=== PATIENT | male | born 1950 | race Caucasian/White ===

== ENCOUNTER 2019-02-24 04:40 | Emergency (ER) | payer MEDICARE, BC, SELFPAY ==
[2019-02-24 04:44] VITALS: BP 123/88; PULSE 87; RESP 17; TEMP 36.8; O2SAT 95; BMI 33.7
--- NOTE | 2019-02-24 05:03 | EKG12_ITS ---
Test Reason : SOB Blood Pressure : / mmHG Vent. Rate : 080 BPM Atrial Rate : 080 BPM P-R Int : 150 ms QRS Dur : 158 ms QT Int : 420 ms P-R-T Axes : 069 246 007 degrees QTc Int : 484 ms Normal sinus rhythm Right bundle branch block Inferior infarct , age undetermined Abnormal ECG Confirmed by MERA FELDER, NIDHI ([id number]), story editor MINH DORMAN ([id number]) on 02/26/2019 11:01:20 AM Referred By: LYNN Confirmed By:NIDHI TESFAYE MD
--- NOTE | 2019-02-24 05:03 | RAD_ITS ---
STUDY: X-RAY CHEST REASON FOR EXAM: Male, 68 years old. Chest pain, history of congestive heart failure. TECHNIQUE: PA and lateral views of the chest. COMPARISON: 01/23/2015. FINDINGS: The lungs are normally expanded with minimal right basilar atelectasis. Remainder of the lung ratliff are clear. There is no demonstrated pleural abnormality. Normal size heart. Normal mediastinum and sakina. Normal visualized pulmonary arteries. Normal visualized aortic arch and descending thoracic aorta. There are diffuse degenerative changes of the visualized thoracic spine. There is degenerative osteoarthritis of the bilateral shoulders. There is no demonstrated abnormality of the visualized soft tissue structures of the upper abdomen. RAD/Chest PA and Lateral IMPRESSION: Minimal right basilar atelectasis, otherwise no acute cardiopulmonary process seen. Electronically Signed: Fatuma Barber MD at 6:07 EDT , Service support ,
[2019-02-24] MEDS: 0.9% Normal Saline 1,000 ML 15 ML IV (05:15)
[2019-02-24 05:40] LABS: Absolute Lymphocyte Count 0.95 X10^3/uL (0.83-4.51); Absolute Neutrophil Count 7.1 X10^3/uL (2.0-7.7); Basophil# 0.07 X10^3/uL; Basophil% 0.8 % (0-1); Eosinophil# 0.14 X10^3/uL; Eosinophils% 1.5 % (0-5); Hematocrit 42.3 % (40-54); Hemoglobin 13.7 g/dL (13.0-16.5); Lymphocyte # 0.95 X10^3/ul (4.0); Lymphocyte % 10.4 % (19-41); Mean Corp Hgb Conc 32.4 g/dL (32-36); Mean Corpuscular Hgb 28.7 pg (27.0-32.0); Mean Corpuscular Volume 88.5 fL (80-94); Monocyte% 8.8 % (0-10); NRBC Flagged by Analyzer 0 % (0-5); Neutrophil # 7.11 X10^3/uL (2.7-7.7); Neutrophil % 78.1 % (47-70); Platelet Count 202 K/mm3 (150-450); RBC Distribution Width SD 42.2 fl (35.1-43.9); Red Blood Count 4.78 M/mm3 (4.6-6.2); White Blood Count 9.1 K/mm3 (4.4-11.0)
--- NOTE | 2019-02-24 05:51 | ED.DCSUM_ITS ---
- ER Visit Summary Date of Service: 02/24/19 Chief Complaint: [Shortness of breath] History of Present Illness: The patient is a 68 M [presents to the emergency department with complaint of shortness of breath that has had for about 4 days. Patient states that he had a tooth pulled 4 days ago and ever since that time is not felt well. Patient states that he is having a hard time breathing when lying flat. Patient states that he has had cough when trying to clear his throat. Had nausea but no vomiting. He denies any abdominal pain. Denies fever. Denies chest pain. Patient currently on amoxicillin for the dental extraction. Patient has history of diabetes, hypertension, and high cholesterol. Patient has history of A. fib and lymphoma that is in remission. Patient is on Xarelto.] Patient does not have history of coronary artery disease and no history of PE. No history of CHF. Physical Examination: [HEENT-PERRLA, EOMI. Cranial nerves II through XII grossly intact. TMs clear. Mucous membranes moist. No adenopathy. Dentition- patient does have a right lower molar that is been extracted with sutures in place and edema and bruising noted to the gingiva. Cardiovascular-regular rate and rhythm without murmur or ectopy Lungs-clear to auscultation, chest wall stable without crepitus or subcu emphysema Abdomen-normoactive bowel sounds, soft, nontender, no rebound or rigidity, no peritoneal signs. Extremities-intact ?4, normal range of motion, normal pulses, atraumatic] Test Results: [EKG obtained on arrival shows sinus rhythm with a ventricular rate of 80 bpm with right bundle branch block. CBC with differential showed a white count of 9.1, hemoglobin 13.7, hematocrit 42, plates 202.] Chemistries were normal. LFTs unremarkable. Lipase was normal at 1.3. Troponin is less than 0.15. BNP was normal at 39. Chest x-ray showed minimal bibasilar atelectasis otherwise nothing acute. Emergency Department Course and Treatment: [Patient was placed on a cardiac catheterization technologist on arrival] Treatment Plan: [Discharged home with advised to follow-up with primary care physician within next 3 to 5 days.] Disposition: [Discharged home in stable condition.] Impression: [Dyspnea-etiology uncertain] This note was generated with [employer] ([employer]ation software. It may contain incorrect words, spelling, and punctuation that were not noted in review of the chart prior to signing ED Disposition - Plan for ED Patient: Referrals: Hesham Young III, MD [Primary Care Provider] -
[2019-02-24 06:07] LABS: AST(SGOT) 23 U/L (15-37); Alanine Aminotransfer ALT/SGPT 29 U/L (16-61); Albumin, Serum 3.8 g/dL (3.2-5.0); Alkaline Phosphatase 80 U/L (45-117); Anion Gap 7 (5-15); BUN 13 mg/dL (7-18); BUN/Creat Ratio 12.1 RATIO (10-20); Calcium,Total 8.8 mg/dL (8.5-10.1); Chloride 103 mmol/L (98-107); Creatinine, Serum 1.07 mg/dL (0.70-1.30); EST Glomerular Filtration Rate 73 mL/min (>60); Est Glom Filt Rate - Afr Amer 88 mL/min (>60); Estimated Creatinine Clearance 76.78 ml/min; Globulin 3.7 g/dL (2.2-4.2); Glucose 155 mg/dL (74-106); Lipase 123 U/L (73-393); Potassium 4.1 mmol/L (3.5-5.1); Protein, Total 7.5 g/dL (6.4-8.2); Sodium Level 135 mmol/L (136-145)
[2019-02-24 06:09] LABS: Lactic Acid 1.8 mmol/L (0.4-2.0)
[2019-02-24 06:16] LABS: BNP,B-Type NATRIURETIC PEPTIDE 39.2 pg/mL (0-100)
--- NOTE | 2019-02-24 06:37 | ED.DEP ---
ED Disposition - Plan for ED Patient: Instructions: ED Dyspnea Referrals: Hesham Young III, MD [Primary Care Provider] - 3-5 Days
--- NOTE | 2019-02-24 06:39 | NURSING ---
CALLING [facility] FOR TRANSFER
[2019-02-24 06:43] VITALS: BP 139/82; PULSE 84; RESP 16; O2SAT 94
== END 2019-02-24 06:51 | disposition home or self-care (01) ==
LOC: ED 05:11
PROVIDERS: Emergency Provider Emergency Medicine; Family Provider Family Medicine; PCP Family Medicine
DX: R06.00 Dyspnea, unspecified (principal); R05 Cough; E11.9 Type 2 diabetes mellitus without complications; E78.00 Pure hypercholesterolemia, unspecified; I45.10 Unspecified right bundle-branch block; I48.91 Unspecified atrial fibrillation; I50.9 Heart failure, unspecified; Z79.01 Long term (current) use of anticoagulants; Z85.72 Personal history of non-Hodgkin lymphomas; I11.0 Hypertensive heart disease with heart failure
CPT/HCPCS: 71046; 80053; 83605; 83690; 83880; 84484; 85025; 93005; 99285; J7030

== ENCOUNTER 2019-02-28 16:20 | Emergency (ER) | payer MEDICARE, BC, SELFPAY ==
[2019-02-28 16:21] VITALS: BP 128/100; PULSE 84; PULSE 86; RESP 17; RESP 18; TEMP 37.1; O2SAT 95; BMI 35.2
--- NOTE | 2019-02-28 16:55 | CT_ITS ---
STUDY: CTA OF THE BRAIN REASON FOR EXAM: Male, 68 years old. HEADACHE, HX STROKE RADIATION DOSAGE (If Supplied By Facility): CTDIvol = ( 27.40 ) mGy, DLP = ( 1288.98 ) mGycm TECHNIQUE: CT angiography was performed with a multi-detector CT scanner. Data acquisition was obtained from the skull base through the vertex following intravenous administration of IV 100mL [id number]-370 100. MIP images were reconstructed from the axial data set. Post-processing of the angiographic images was performed, with multiplanar reformation and 3D reconstruction. Individualized dose optimization techniques were used for this CT. COMPARISON: Head CT dated February 28, 2015. FINDINGS: Normal bilateral petrous carotid arteries. There is calcified plaque formation of the right cavernous carotid artery, without a cross-sectional luminal stenosis. There is calcified plaque formation of the left cavernous carotid artery, with a mild stenosis (less than 50%). Normal right A1 segments of the anterior cerebral artery. Normal left A1 segments of the anterior cerebral artery. Normal intact anterior communicating artery (ACOM). Normal bilateral A2 segments of the anterior cerebral arteries. Normal right M1 and M2 segments of the middle cerebral arteries, with a normal M1 bifurcation. Normal left M1 and M2 segments of the middle cerebral arteries, with a normal M1 bifurcation. Normal right posterior communicating artery (PCOM). Normal left posterior communicating artery (PCOM). Normal bilateral vertebral arteries. Normal basilar artery with a normal basilar bifurcation. The visualized bilateral superior cerebellar (SCA) arteries are normal. Normal bilateral P1, P2 and visualized P3 segments of the posterior cerebral arteries. There is no demonstrated aneurysm of the poarch of [place]. Mild atrophy and periventricular chronic microvascular ischemic signal is present in the bilateral cerebral hemispheres. No significant or acute intracranial process is demonstrated. No visualized hemorrhage or midline shift. CT/CTA Head W/WO Contrast IMPRESSION: 1. No demonstrated aneurysm or hemodynamically significant stenosis. 2. There is calcified plaque formation of the right cavernous carotid artery, without a cross-sectional luminal stenosis. 3. There is calcified plaque formation of the left cavernous carotid artery, with a mild stenosis (less than 50%). 4. Mild atrophy and periventricular chronic microvascular ischemic signal is present in the bilateral cerebral hemispheres. No significant or acute intracranial process is demonstrated. Electronically Signed: Clyde Carlos MD at 18:19 EDT , Service support ,
--- NOTE | 2019-02-28 17:00 | ED.DCSUM_ITS ---
- ER Visit Summary Date of Service: 02/28/19 Chief Complaint: Headache History of Present Illness: The patient is a 68 M presenting with intermittent headache. He states this started several days ago. He has pain to the right superior scalp. He states it lasts 30 seconds at a time. He denies fever. Den ies nausea or vomiting. Denies numbness or weakness. Denies vision changes. He had a right lower molar extracted last week. This has been healing well. He has had no fever. No other complaints. Physical Examination: Vitals are stable. Patient is afebrile. Alert no acute distress. HEENT exam is unremarkable. right lower gum healing, no fluctuance. No sublingual edema. Tenderness right superior posterior scalp. No rash is seen. Neck is supple. No meningismus Lungs are clear and equal bilaterally. Heart is regular rate and rhythm. Abdomen is soft nontender nondistended. Extremities are unremarkable. Skin is warm and dry. No focal neurologic deficit. Normal strength and sensation Remainder of exam is unremarkable. Emergency Department Course and Treatment: Patient was given Dilaudid, zofran. CTA head shows no demonstrated aneurysm or hemodynamically significant stenosis. There is calcified plaque formation of the right cavernous carotid artery, without a cross-sectional luminal stenosis. There is calcified plaque formation of the left cavernous carotid artery, with a mild stenosis (less than 50%). Mild atrophy and periventricular chronic microvascular ischemic signal is present in the bilateral cerebral hemispheres. No significant or acute intracranial process is demonstrated. Pain is worsened by mild touch of the scalp. There is no rash consistent with shingles at this time, the patient is advised to watch closely for developing rash. He is given [place]. He is advised to follow-up with his primary care physician. Advised return to ED for worsening complaints. Disposition: Discharge home Impression: Right scalp pain This note was generated with [employer] dictation software. It may contain incorrect words, spelling, and punctuation that were not noted in review of the chart prior to signing ED Disposition - Plan for ED Patient: Instructions: HEADACHE, Unspecified Prescriptions: Hydrocodone Bitart/Apap 5-325 [[place] 5MG-325MG] 1 tab PO Q6H PRN PRN 3 Days #10 tab PRN Reason: Pain Prescription Printed Referrals: Hesham Young III, MD [Primary Care Provider] -
[2019-02-28] MEDS: HYDROmorphone 0.5 MG/0.5 ML SYRINGE IV (17:16)
[2019-02-28] MEDS: Ondansetron 4 MG/2 ML Vial IV (17:16)
[2019-02-28 17:56] VITALS: BP 119/82; PULSE 67; RESP 16
[2019-02-28 19:05] VITALS: BP 108/88
== END 2019-02-28 19:05 | disposition home or self-care (01) ==
LOC: ED 17:18
PROVIDERS: Emergency Provider Emergency Medicine; Family Provider Family Medicine; PCP Family Medicine
DX: R51 Headache (principal); I65.23 Occlusion and stenosis of bilateral carotid arteries; I67.82 Cerebral ischemia; Z86.73 Personal history of transient ischemic attack (TIA), and cerebral infarction without residual deficits; E11.9 Type 2 diabetes mellitus without complications; I10 Essential (primary) hypertension; I48.91 Unspecified atrial fibrillation
CPT/HCPCS: 70496; 96374; 96375; 99285; Q9967; A4216; J2405

== ENCOUNTER 2019-09-01 07:08 | Emergency (ER) | payer MEDICARE, BC, SELFPAY ==
[2019-09-01 07:09] VITALS: BP 115/92; BP 127/72; PULSE 138; PULSE 141; RESP 20; TEMP 36.9; O2SAT 98; O2SAT 99; BMI 33.3
--- NOTE | 2019-09-01 07:30 | EKG12_ITS ---
Test Reason : TACHY Blood Pressure : / mmHG Vent. Rate : 140 BPM Atrial Rate : 140 BPM P-R Int : 152 ms QRS Dur : 082 ms QT Int : 280 ms P-R-T Axes : 000 -80 085 degrees QTc Int : 427 ms Probable atrial flutter with junctional abberant conduction Left axis deviation Inferior infarct , age undetermined Abnormal ECG Confirmed by MERA FELDER, NIDHI ([id number]), index editor JOLYNN BROWN ([id number]) on 09/06/2019 3:35:52 PM Referred By: JORDI Confirmed By:NIDHI TESFAYE MD
--- NOTE | 2019-09-01 07:40 | EKG12_ITS ---
Test Reason : TACHY Blood Pressure : / mmHG Vent. Rate : 140 BPM Atrial Rate : 140 BPM P-R Int : 176 ms QRS Dur : 088 ms QT Int : 288 ms P-R-T Axes : 046 -77 104 degrees QTc Int : 439 ms Sinus tachycardia with frequent Premature ventricular complexes Left anterior fascicular block Inferior infarct , age undetermined Abnormal ECG Confirmed by MERA FELDER, NIDHI ([id number]), production editor JOLYNN BROWN ([id number]) on 09/03/2019 11:15:18 AM Referred By: JORDI Confirmed By:NIDHI TESFAYE MD
--- NOTE | 2019-09-01 07:45 | ED.DCSUM_ITS ---
History of Present Illness Chief Complaint: Palpitations Informant: Patient Onset: Days Maximum Severity: Mild Narrative: The patient presents complaining of palpitations and racing heart since possibly Monday but for sure Monday symptoms persisted into today and he presents for evaluation He indicates he has a long history of cardiac dysrhythmia he indicates is [facility] in m, no fever no cough no chest pain just a sense of tachycardia and fatigue bowel bladder habits been normal review of system otherwise negative Tiffany that he has a combination of atrial fibrillation and ventricular tachycardia he has been on a variety of different therapies including one time amiodarone that made him sick so it was stopped he is currently on metoprolol and lisinopril he has been having dysrhythmia in a more sustained fashion Past Medical History - Allergies and Home Meds Allergies/Adverse Reactions: Allergies morphine Allergy (Verified 09/01/19 07:12) HALLUCINATIONS amoxicillin Adverse Reaction (Verified 09/01/19 07:12) Nausea/Vom/Diarrhea Primary Care Physician: Hesham Young III, MD [Primary Care Provider] - Past Medical History: - - History of A. fib reported V. tach no history of ID PE no COVID exposures Surgical History: - - Patient has had ablation ?2, remote discectomy in the low back Smoking Status: Never smoker - Family History Maternal Family History: Reports: Diabetes, - - Mother of lung cancer Paternal Family History: Reports: Diabetes, - - Father of esophageal cancer Sibling Family History: Reports: Hypertension, - - He has a sister who of lung disease and has a heavy smoker Review of Systems General: Denies: Chills, Fever, Sweats Eyes: Denies: Visual changes - bilaterally, Diplopia ENT: Denies: Rhinorrhea, Sore throat Cardiovascular: Reports: Palpitations, Heart racing. Denies: Chest pain Respiratory: Denies: Dyspnea, Cough, Dyspnea on exertion Gastrointestinal: Denies: Abdominal pain, Nausea, Vomiting, Diarrhea, Melena, Hematochezia Genitourinary: Denies: Dysuria, Hematuria, Frequency Musculoskeletal: Denies: Back pain, Extremity Pain Skin: Denies: Rash, Wounds Neurological: Denies: Headache, Weakness, Numbness Physical Exam Vital Signs/Narrative: Vital Signs Temp Pulse Resp BP Pulse Ox 09/01/19 07:09 98.5 F 138 H 20 H 115/92 H 98 General: Well nourished, Well developed, No Acute Distress Head: Normocephalic, Atraumatic Eyes: Perrl, EOMI ENT: Moist mucous membranes, No rhinorrhea Neck: Supple, Nontender Cardiovascular: No murmurs, Irregular, Tachycardia, - - Patient has an irregular heart rate of 140 he have a sinus beats followed by wide-complex beats 6-8 in a row he is remained hemodynamically stable no fever cough chest pain Respiratory: No distress, CTA bilaterally, Chest nontender Abdomen: Soft, Nontender, Nondistended, Normal bowel sounds Back: Nontender, Normal Inspection Extremities: Nontender, No edema Skin: Normal color, No rash Neurological: Alert, Oriented x3, Cranial nerves II-XII grossly intact, Normal Strength, Normal Sensation Psychological: Normal affect, Normal Mood Diagnostic/Tx/Re-eval - Medical Decision Making The patient has had this condition longstanding his vital signs are unremarkable he is been seen by multiple ui ux developer, he indicates he has had a cardiac cath in the past that showed no signs of CAD he indicates his A. fib/V. tach has been difficult to manage she was scheduled for an EP study and that was not done back in March because at the time from what he can recall ultimately the cardiology team felt that it would be necessary I discussed the patient's condition the differential he indicates he basically cannot tolerate this tachycardia as it has not responded to the medications, he would like to be admitted only to [facility] he does not wish to be considered for admission to [facility] or [facility]\ His EKG shows again sinus beats with runs of wide-complex beats some runs of bigeminy no injury patterns appreciated intervals except for the right bundle branch block pattern otherwise unremarkable, Spoke with [facility] transfer line discussed all the above with them they would like a COVID test done on the patient they have accepted him in transfer to their COVID unit for rule out and then after he rules out for COVID he can have additional cardiology evaluation I spoke with Dr. KALA THURMAN and VALERIA forte why cardiology air pollution compliance inspector who indicates at least 1 of the patient's EP study showed sinus tach and no V. tach or A. fib we discussed dysrhythmia management and they agreed with metoprolol with no additional medications at this time Patient screening labs are obtained and are on the chart as is the chest x-ray all records will be transferred to [facility] we are trying to determine based on [facility] policy if the patient can have the COVID test done here before he leaves Final impression cardiac dysrhythmia, A. fib RVR versus V. tach Transfer to [facility] ED Disposition - Plan for ED Patient: Diagnosis: Atrial fibrillation, Ventricular tachycardia Referrals: Hesham Young III, MD [Primary Care Provider] -
--- NOTE | 2019-09-01 07:48 | NURSING ---
DR OVIDIO BACON
[2019-09-01] MEDS: Aspirin 81 MG TAB.CHEW 324 MG PO (07:49)
[2019-09-01] MEDS: Metoprolol Tartrate 5 MG/5 ML Vial IV (07:49)
[2019-09-01 07:50] LABS: Absolute Lymphocyte Count 2.59 X10^3/uL (0.83-4.51); Absolute Neutrophil Count 5.1 X10^3/uL (2.0-7.7); Basophil# 0.08 X10^3/uL; Basophil% 0.9 % (0-1); Eosinophil# 0.18 X10^3/uL; Eosinophils% 2.1 % (0-5); Hemoglobin 15.8 g/dL (13.0-16.5); Lymphocyte # 2.59 X10^3/ul (4.0); Lymphocyte % 29.8 % (19-41); Mean Corp Hgb Conc 32.2 g/dL (32-36); Mean Corpuscular Hgb 27.4 pg (27.0-32.0); Mean Corpuscular Volume 85.1 fL (80-94); Mean Platelet Vol. 10.3 fl (6.2-12.0); Monocyte# 0.73 X10^3/uL; Monocyte% 8.4 % (0-10); NRBC Flagged by Analyzer 0 % (0-5); Neutrophil # 5.06 X10^3/uL (2.7-7.7); Neutrophil % 58.3 % (47-70); Platelet Count 268 K/mm3 (150-450); RBC Distribution Width SD 39.9 fl (35.1-43.9); Red Blood Count 5.76 M/mm3 (4.6-6.2); White Blood Count 8.7 K/mm3 (4.4-11.0)
--- NOTE | 2019-09-01 07:50 | NURSING ---
[id number] CALLED [facility] FOR TRANSFER. TALKED TO DUSTIN
[2019-09-01 07:55] VITALS: BP 132/108; PULSE 139; RESP 18; O2SAT 98
[2019-09-01 07:59] LABS: Anion Gap 7 (5-15); BUN 15 mg/dL (7-18); BUN/Creat Ratio 12.8 RATIO (10-20); Calcium,Total 9.2 mg/dL (8.5-10.1); Chloride 107 mmol/L (98-107); Creatinine, Serum 1.17 mg/dL (0.70-1.30); EST Glomerular Filtration Rate 65 mL/min (>60); Est Glom Filt Rate - Afr Amer 79 mL/min (>60); Glucose 168 mg/dL (74-106); Sodium Level 139 mmol/L (136-145)
--- NOTE | 2019-09-01 08:00 | RAD_ITS ---
STUDY: X-RAY CHEST REASON FOR EXAM: Male, 68 years old. Palpitations TECHNIQUE: Single AP portable view x 2 of the chest. COMPARISON: February 24, 2019 chest x-ray FINDINGS: Lung markings are stable. There is no visualized acute focal consolidation or pleural effusion. There is no demonstrated pleural abnormality. Normal size heart. Normal mediastinum and sakina. Normal visualized pulmonary arteries. Normal visualized aortic arch and descending thoracic aorta. There are diffuse degenerative changes of the visualized thoracic spine. Normal visualized ribs, clavicles, and shoulders. There is no demonstrated abnormality of the visualized soft tissue structures of the upper abdomen. RAD/Chest 1 View (Portable) IMPRESSION: Stable lung markings no evidence of acute focal infiltrate. Electronically Signed: Kathi Brandt MD at 8:32 EDT Tel , Service support ,
--- NOTE | 2019-09-01 08:00 | NURSING ---
FAXED FACESHEET TO [facility] TRANSFER LINE
[2019-09-01 08:09] LABS: BNP,B-Type NATRIURETIC PEPTIDE 365.1 pg/mL (0-100)
--- NOTE | 2019-09-01 08:10 | NURSING ---
[facility] MAIN J 63 BED 19 NURSE TO NURSE [phone]
[2019-09-01 08:18] VITALS: BP 147/119; PULSE 134; RESP 20; O2SAT 97; O2SAT 98
--- NOTE | 2019-09-01 08:46 | NURSING ---
CALLED [facility]. ETA IS 60 MIN
[2019-09-01 08:48] VITALS: BP 118/71; PULSE 135; RESP 20; O2SAT 98
--- NOTE | 2019-09-01 08:50 | ED.RN ---
THIS NURSE CONTACTED [facility] TRANSFER LINE. DUSTIN UPDATED THAT THE PT WAS SWABBED FOR COVID BUT WE WILL NOT HAVE RESULTS TODAY. PER DUSTIN, OK TO SEND PT
--- NOTE | 2019-09-02 12:11 | ED.RN ---
PATIENT WAS TRANSFERRED TO [facility], CONTACTED CC AND STATED THAT PATIENT WAS DISCHARGED HOME. THIS RN CALLED AND LEFT MESSAGE FOR PATIENT AND MADE AWARE THAT HIS COVID-19 TEST IS NEGATIVE.
== END 2019-09-01 10:46 | disposition short-term general hospital (02) ==
PROVIDERS: Emergency Provider Emergency Medicine; PCP Family Medicine
DX: I48.91 Unspecified atrial fibrillation (principal); I47.2 Ventricular tachycardia; Z82.49 Family history of ischemic heart disease and other diseases of the circulatory system; Z88.0 Allergy status to penicillin; I45.10 Unspecified right bundle-branch block; I44.4 Left anterior fascicular block
CPT/HCPCS: 71045; 80048; 83880; 84484; 85025; 87635; 93005; 96374; 99285; G2023; J7030; A4216; U0004

== ENCOUNTER 2019-09-27 08:19 | Emergency (ER) | payer MEDICARE, BC, SELFPAY ==
[2019-09-27] VITALS (13 sets, daily range): BP systolic 95–144; BP diastolic 60–127; PULSE 120–137; RESP 12–22; TEMP 36.6; O2SAT 96–100; BMI 30.8
--- NOTE | 2019-09-27 09:02 | EKG12_ITS ---
Test Reason : REPEAT FOR SOB Blood Pressure : / mmHG Vent. Rate : 127 BPM Atrial Rate : 159 BPM P-R Int : 000 ms QRS Dur : 148 ms QT Int : 386 ms P-R-T Axes : 000 262 039 degrees QTc Int : 560 ms Junctional tachycardia vs. Supraventricular tachycardia with abberancy Abnormal ECG Confirmed by ALANNA BAPTISTE ([id number]), sound editor JOLYNN BROWN ([id number]) on 09/30/2019 11:05:56 AM Referred By: GENTRY Confirmed By:ALANNA BAPTISTE
--- NOTE | 2019-09-27 09:10 | ED.DCSUM_ITS ---
History of Present Illness Chief Complaint: Shortness of Breath Informant: Patient Onset: Weeks - 1, - - significantly worse today/this AM x several hrs Activity at onset: Rest Timing: Continuous Quality: - - feels short of breath Current Severity: Moderate Maximum Severity: Moderate Worsened by: Exertion Relieved by: Rest Associated Symptoms: Cough - chronic, unchanged. Negative for: Fever, Sore throat Chest Pain: None Narrative: Patient states he has been home from [facility] for about 1 week. He was transferred there for a cardiac ablation for atrial fibrillation/v.tach, states the procedure was complicated by some type of perforation of his heart. He ended up intubated in the ICU for a week. States he has felt short of breath for the last week since he has been home, much worse this morning. Denies any racing or palpitations although he is in rapid A. fib. He cannot tell. He states he does not want to go back to [facility] for cardiac care given his recent issues there. 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 (2) Benign prostatic hypertrophy Status: Chronic (3) Depression Status: Chronic (4) Anemia Status: Chronic (5) PAF (paroxysmal atrial fibrillation) Status: Chronic Past Medical History - Allergies and Home Meds Allergies/Adverse Reactions: Allergies fentanyl Allergy (Verified 09/27/19 08:27) PT UNSURE OF REACTION morphine Allergy (Verified 09/01/19 07:12) HALLUCINATIONS amoxicillin Adverse Reaction (Verified 09/01/19 07:12) Nausea/Vom/Diarrhea Primary Care Physician: Hesham Young III, MD [Primary Care Provider] - Surgical History: - - Patient has had ablation ?2, remote discectomy in the low back Smoking Status: Never smoker - Family History Maternal Family History: Reports: Diabetes, - - Mother of lung cancer Paternal Family History: Reports: Diabetes, - - Father of esophageal cancer Sibling Family History: Reports: Hypertension, - - He has a sister who of lung disease and has a heavy smoker Review of Systems General: Denies: Chills, Fever, Sweats Eyes: Denies: Visual changes - bilaterally, Diplopia ENT: Denies: Bilateral ear pain, Rhinorrhea, Sore throat Cardiovascular: Denies: Chest pain, Palpitations, Heart racing Respiratory: Reports: Dyspnea, Cough. Denies: Sputum, Orthopnea Gastrointestinal: Reports: Nausea - earlier this AM; resolved. Denies: Abdominal pain, Vomiting, Diarrhea, Melena, Hematochezia Genitourinary: Denies: Dysuria, Hematuria, Frequency Musculoskeletal: Denies: Neck pain, Back pain, Swelling, Extremity Pain Skin: Denies: Rash, Wounds Neurological: Denies: Headache, Weakness, Numbness Physical Exam Vital Signs/Narrative: Vital Signs Temp Pulse Resp BP Pulse Ox 09/27/19 08:28 97.9 F 137 H 20 H 144/127 H 99 09/27/19 08:21 97.9 F 137 H 20 H 144/127 H 99 Inital Vital Signs reviewed: Yes General: Well nourished, Well developed, No Acute Distress Head: Normocephalic, Atraumatic Eyes: Perrl, EOMI ENT: Moist mucous membranes, No rhinorrhea Neck: Supple, Nontender, No JVD Cardiovascular: Irregular, Tachycardia, - - very faint HS Respiratory: No distress, CTA bilaterally, Chest nontender, Diminished - diffusely, symmetrically Abdomen: Soft, Nontender, Nondistended, Normal bowel sounds Back: Nontender, Normal Inspection Extremities: Nontender, No edema. Negative for: Calf Tenderness Skin: Normal color, No rash, No Trauma Neurological: Alert, Oriented x3, Cranial nerves II-XII grossly intact, Normal Strength, Normal Sensation Psychological: Normal affect, Normal Mood Diagnostic/Tx/Re-eval Impressions Chest X-Ray 09/27/19 09:54 IMPRESSION: Borderline cardiomegaly. The lungs are clear. Electronically Signed: Rigoberto Minerva, at 10:18 EDT , Service support , 09/27/19 09:54 Chest 1 View (Portable) [RAD] Stat Laboratory Results 09/27/19 09/27/19 08:26 08:26 WBC 11.5 H RBC 4.89 Hgb 13.1 Hct 43.4 MCV 88.8 MCH 26.8 L MCHC 30.2 L RDW Std Deviation 45.2 H RDW Coeff of Venkatesh 14.0 Plt Count 409 MPV 10.6 Immature Gran % (Auto) 0.500 Neut % (Auto) 74.8 H Lymph % (Auto) 15.3 L Pettis % (Auto) 7.4 Eos % (Auto) 1.2 Baso % (Auto) 0.8 Absolute Neuts (auto) 8.6 H Absolute Lymphs (auto) 1.76 Nucleated RBC % 0 Sodium 139 Potassium 4.5 Chloride 105 Carbon Dioxide 25.0 Anion Gap 9 BUN 15 Creatinine 1.32 H Estim Creat Clear Calc 60.54 Est GFR (MDRD) Af Amer 69 Est GFR (MDRD) Non-Af 57 L BUN/Creatinine Ratio 11.4 Glucose 159 H Calcium 9.4 Troponin I < 0.015 - Rhythm Strip Rhythm Strip: A-fib Rate: 140 Ectopy: None - EKG Initial EKG Interpretation: No Acute Injury Pattern, Atrial Fibrillation, RBBB, Non-Specific ST Changes Prior: Unchanged Follow-up EKG Interpretation: No Acute Injury Pattern, Atrial Fibrillation, RBBB, Non-Specific ST Changes Prior: Unchanged Treatment - Dyspnea: Oxygen, - - cardizem Repeat Evaluation: Improved - Medical Decision Making Patient felt better after getting Cardizem, his heart rate went down to the 110s, but then when it became faster, he started feeling more short of breath again. His blood pressure went down to the 90s, so we gave him some fluid to get his pressure a before starting the Cardizem drip. He is currently taking and complying with Xarelto, so I do not think we need to consider an acute pulmonary embolus here since his oxygen saturations have been excellent. He does not have any clinical findings of tampanade. I discussed with Dr. Messina, under the circumstances he thinks it is probably better that he be transferred to a higher level of care now since he needs an EP study anyway, and possibly intervention. Apparently the patient has had a Holter or event monitor showing that he is in and out of A. fib and ventricular tachycardia, which gave him the need for an EP study in the first place. Here since his blood pressure is doing well, even under increasing Cardizem drip, I do not think he needs a stat echo or CT scan to evaluate for residual pericardial effusion until he is at tertiary care center. ED Disposition - Plan for ED Patient: Disposition: [facility] Diagnosis: Atrial fibrillation with rapid ventricular response, Dyspnea, Paroxysmal ventricular tachycardia Referrals: Hesham Young III, MD [Primary Care Provider] -
[2019-09-27] MEDS: 0.9% Normal Saline 1,000 ML 150 ML IV (09:12)
[2019-09-27] MEDS: dilTIAZem 25 MG/5 ML Vial 20 MG IV BOLUS (09:12)
[2019-09-27 09:14] LABS: Absolute Lymphocyte Count 1.76 X10^3/uL (0.83-4.51); Absolute Neutrophil Count 8.6 X10^3/uL (2.0-7.7); Basophil# 0.09 X10^3/uL; Basophil% 0.8 % (0-1); Eosinophil# 0.14 X10^3/uL; Eosinophils% 1.2 % (0-5); Hematocrit 43.4 % (40-54); Hemoglobin 13.1 g/dL (13.0-16.5); Lymphocyte # 1.76 X10^3/ul (4.0); Lymphocyte % 15.3 % (19-41); Mean Corp Hgb Conc 30.2 g/dL (32-36); Mean Corpuscular Hgb 26.8 pg (27.0-32.0); Mean Corpuscular Volume 88.8 fL (80-94); Mean Platelet Vol. 10.6 fl (6.2-12.0); Monocyte# 0.85 X10^3/uL; Monocyte% 7.4 % (0-10); NRBC Flagged by Analyzer 0 % (0-5); Neutrophil # 8.57 X10^3/uL (2.7-7.7); Neutrophil % 74.8 % (47-70); Platelet Count 409 K/mm3 (150-450); RBC Distribution Width SD 45.2 fl (35.1-43.9); Red Blood Count 4.89 M/mm3 (4.6-6.2); White Blood Count 11.5 K/mm3 (4.4-11.0)
[2019-09-27 09:24] LABS: Anion Gap 9 (5-15); BUN 15 mg/dL (7-18); BUN/Creat Ratio 11.4 RATIO (10-20); Calcium,Total 9.4 mg/dL (8.5-10.1); Chloride 105 mmol/L (98-107); Creatinine, Serum 1.32 mg/dL (0.70-1.30); EST Glomerular Filtration Rate 57 mL/min (>60); Est Glom Filt Rate - Afr Amer 69 mL/min (>60); Estimated Creatinine Clearance 60.54 ml/min; Glucose 159 mg/dL (74-106); Potassium 4.5 mmol/L (3.5-5.1); Sodium Level 139 mmol/L (136-145)
--- NOTE | 2019-09-27 09:54 | RAD_ITS ---
STUDY: X-RAY CHEST REASON FOR EXAM: Male, 68 years old. SOB, ELEVATED HEART RATE TECHNIQUE: Single AP portable view of the chest. COMPARISON: Comparison is made with prior examination dated September 01, 2019. FINDINGS: EKG electrodes are seen. The lungs are clear and expanded. There is no demonstrated pleural abnormality. There is borderline cardiomegaly. Normal mediastinum and sakina. Normal visualized pulmonary arteries. There is atherosclerotic tortuosity of the aortic arch and descending thoracic aorta. There are degenerative changes of the visualized thoracic spine. Normal visualized ribs, clavicles, and shoulders. There is no demonstrated abnormality of the visualized soft tissue structures of the upper abdomen. RAD/Chest 1 View (Portable) IMPRESSION: Borderline cardiomegaly. The lungs are clear. Electronically Signed: Rigoberto Palma, at 10:18 EDT , Service support ,
--- NOTE | 2019-09-27 12:00 | EKG12_ITS ---
Test Reason : TACHY Blood Pressure : / mmHG Vent. Rate : 136 BPM Atrial Rate : 136 BPM P-R Int : 000 ms QRS Dur : 150 ms QT Int : 362 ms P-R-T Axes : 000 259 029 degrees QTc Int : 544 ms Atrial fibrillation Right bundle branch block Inferior infarct , age undetermined Abnormal ECG Confirmed by ALANNA BATPISTE ([id number]), editor map JOLYNN BROWN ([id number]) on 09/30/2019 11:14:45 AM Referred By: GENTRY Confirmed By:ALANNA BAPTISTE
--- NOTE | 2019-09-27 14:18 | ED.RN ---
per ED front office secretary, [facility] states will arrived in 90 min to 2 hours. [facility] states they received report from Dr. Walsh and do not need Nurse to Nurse.
--- NOTE | 2019-09-27 15:11 | ED.RN ---
called transfer center and talked with Le to verify report. States previously talked with Rocio.
[2019-09-27 15:19] LABS: BNP,B-Type NATRIURETIC PEPTIDE 159.6 pg/mL (0-100)
== END 2019-09-27 15:55 | disposition short-term general hospital (02) ==
PROVIDERS: Emergency Provider Emergency Medicine; PCP Family Medicine
DX: I48.91 Unspecified atrial fibrillation (principal); R06.00 Dyspnea, unspecified; I47.2 Ventricular tachycardia; Z82.49 Family history of ischemic heart disease and other diseases of the circulatory system; Z85.72 Personal history of non-Hodgkin lymphomas; Z88.0 Allergy status to penicillin; N40.0 Benign prostatic hyperplasia without lower urinary tract symptoms; F32.9 Major depressive disorder, single episode, unspecified; D64.9 Anemia, unspecified
CPT/HCPCS: 71045; 80048; 83880; 84484; 85025; 93005; 96360; 96361; 99285; J7030

== ENCOUNTER 2023-05-31 11:30 | Inpatient (IN) | payer MEDICARE, BC, SELFPAY ==
[2023-05-31] VITALS (21 sets, daily range): BP systolic 86–128; BP diastolic 55–102; PULSE 18–119; RESP 15–23; TEMP 36.2–36.7; O2SAT 15–117; BMI 33.5; BMI 33.2
[2023-05-31 12:04] LABS: Absolute Lymphocyte Count 2.06 X10^3/uL (0.83-4.51); Absolute Neutrophil Count 5.4 X10^3/uL (2.0-7.7); Basophil# 0.09 X10^3/uL; Basophil% 1.1 % (0-1); Eosinophil# 0.15 X10^3/uL; Eosinophils% 1.8 % (0-5); Hematocrit 52.8 % (40-54); Hemoglobin 16.9 g/dL (13.0-16.5); Lymphocyte # 2.06 X10^3/ul (0.83-4.51); Lymphocyte % 25.2 % (19-41); Mean Corpuscular Hgb 28.8 pg (27.0-32.0); Mean Corpuscular Volume 89.9 fL (80-94); Mean Platelet Vol. 10.3 fl (6.2-12.0); Monocyte# 0.52 X10^3/uL; Monocyte% 6.3 % (0-10); NRBC Flagged by Analyzer 0 % (0-5); Neutrophil # 5.35 X10^3/uL (2.7-7.7); Neutrophil % 65.4 % (47-70); Platelet Count 277 K/mm3 (150-450); RBC Distribution Width CV 12.2 % (11.6-14.6); RBC Distribution Width SD 40.5 fl (35.1-43.9); Red Blood Count 5.87 M/mm3 (4.6-6.2); White Blood Count 8.2 K/mm3 (4.4-11.0)
[2023-05-31 12:18] LABS: Anion Gap 5 (5-15); BUN 18 mg/dL (7-18); BUN/Creat Ratio 12.3 RATIO (10-20); Calcium,Total 9.1 mg/dL (8.5-10.1); Chloride 113 mmol/L (98-107); Creatinine, Serum 1.46 mg/dL (0.70-1.30); EST Glomerular Filtration Rate 50 mL/min (>60); Est Glom Filt Rate - Afr Amer 61 mL/min (>60); Glucose 169 mg/dL (74-106); Potassium 4.2 mmol/L (3.5-5.1); Sodium Level 142 mmol/L (136-145); Troponin-I HS 9 pg/mL (3.0-78.0)
--- NOTE | 2023-05-31 12:33 | EDS_ITS ---
HPI History of Present Illness Chief Complaint: Shortness of Breath Detail of Chief Complaint: Tachycardia and shortness of breath Informant: patient Narrative Narrative: Patient presents to the emergency department with complaint of tachycardia and feeling short of breath. Patient states that symptoms started in the night and he had a hard time sleeping. Heart rate in the 120s. He denied any chest pain. He did feel somewhat short of breath. He has had no fever or cough or recent illness otherwise. Patient states that he just been feeling worn out for the last 5 days. He does take Xarelto for history of A-fib and has had 3 prior ablations. He was taken off the amiodarone recently and started on metoprolol 50 mg twice a day. Patient states that he took 250 mg tablets of the metoprolol this morning to try to control the tachycardia and then noted that his blood pressure dropped. PFSH PFS Home Medications rivaroxaban 20 mg tablet (Xarelto) 20 mg PO QHS 01/23/15 [History Last Taken Unknown] atorvastatin 20 mg tablet 20 mg PO QHS 12/07/16 [History Last Taken Unknown] duloxetine 30 mg capsule,delayed release 30 mg PO DAILY 12/07/16 [History Last Taken Unknown] finasteride 5 mg tablet 5 mg PO QHS 12/07/16 [History Last Taken Unknown] metformin 1,000 mg tablet 500 mg PO BIDCM 12/07/16 [History Last Taken 12/12/16 07:00] multivitamin (Multiple Vitamins tablet) 1 ea PO DAILY 12/07/16 [History Last Taken Unknown] metoprolol succinate 25 mg tablet,extended release 24 hr 100 mg PO BID 09/01/19 [History Last Taken Unknown] amiodarone 200 mg tablet 200 mg PO DAILY 09/27/19 [History Last Taken Unknown] colchicine 0.6 mg capsule 0.6 mg PO DAILY 09/27/19 [History Last Taken Unknown] lisinopril 40 mg tablet 40 mg PO DAILY 09/27/19 [History Last Taken Unknown] Allergy/AdvReac Type Severity Reaction Status Date / Time fentanyl Allergy PT UNSURE Verified 05/31/23 11:31 OF REACTION morphine Allergy HALLUCINATI Verified 05/31/23 11:31 ONS amoxicillin AdvReac Nausea/Vom/ Verified 05/31/23 11:31 Diarrhea Social History Smoking Status: Never smoker ROS ROS ED Review of Systems ROS Unobtainable: other Constitutional Constitutional ED: Reports lethargy; Denies chills, fever(s), sweats or weight loss Eyes Eyes: Denies blurry vision, change in vision or diplopia ENT ENT ED: Denies rhinorrhea or sore throat Cardiovascular Cardiovascular: Reports racing heartbeat; Denies chest pain or orthopnea Respiratory/Chest Respiratory/Chest: Reports dyspnea and dyspnea on exertion; Denies cough, orthopnea or sputum Gastrointestinal Gastrointestinal: Denies abdominal pain, diarrhea, nausea or vomiting Genitourinary Genitourinary ED: Denies dysuria, hematuria or urinary frequency Musculoskeletal Musculoskeletal: Denies arthralgias, back pain, myalgias or neck pain Integumentary Denies abscess, Abrasions or rash Neurologic Neurologic: Denies headache(s) or weakness Psychiatric Psychiatric: Denies anxiety, depression or suicidal thoughts Endocrine Endocrinology: Denies polydipsia, polyphagia or polyuria Hematologic/Lymphatic Hematologic/Lymphatic: Denies easy bleeding, easy bruising or lymphadenopathy Allergic/Immunologic Allergic/Immunologic ED: Denies mouth swelling, tongue swelling or urticaria EXAM Physical Exam Const Vital Signs: 05/31/23 11:32 05/31/23 12:36 05/31/23 12:36 Temperature 97.1 F L Temperature Source Temporal Pulse Rate 114 H 117 H Respiratory Rate 18 22 H Respiratory Effort Respiratory Pattern Blood Pressure 88/55 L 93/71 Blood Pressure Mean 66 78 Pulse Ox 95 96 Oxygen Delivery Method Room Air Room Air Room Air 05/31/23 12:36 05/31/23 12:57 05/31/23 12:59 Temperature Temperature Source Pulse Rate Respiratory Rate Respiratory Effort Short of Breath Respiratory Pattern Normal Blood Pressure 100/77 Blood Pressure Mean 84 Pulse Ox 96 Oxygen Delivery Method Room Air Room Air 05/31/23 13:31 Temperature Temperature Source Pulse Rate 100 Respiratory Rate Respiratory Effort Respiratory Pattern Blood Pressure 86/72 L Blood Pressure Mean 76 Pulse Ox 97 Oxygen Delivery Method Room Air Positive well nourished and well developed General Appearance ED: well developed and NAD HEENT Reports TM's clear and moist mucous membranes normocephalic and atraumatic; Negative for trauma or tenderness Tympanic Membrane ED: Yes TM's clear Eyes PERRL and EOMs intact bilaterally General Eye ED: Negative for pale conjunctiva or scleral icterus Neck no lymphadenopathy, supple and no JVD General: Negative for tenderness Chest Wall inspection of chest normal and palpation of chest normal Chest: Negative for tenderness Resp normal respiratory effort and clear to auscultation bilaterally Effort and Inspection: Negative for respiratory distress or pain with movement Auscultation: Negative for rhonchi, wheezes or diminished lung sounds Cardio regular rhythm, S1 normal heart sound, S2 normal heart sound and no murmurs; Negative for regular rate Rate: tachycardic Peripheral Pulses: pulses 2+ throughout GI normal to inspection, nondistended, normoactive bowel sounds, soft to palpation, non-tender, non-distended and no masses Back/Spine no CVA tenderness and no thoracic nor lumbar tenderness Extremity normal to inspection General Extremety ED: Negative for edema General Extremity: Negative for edema Neuro oriented x3, CN's II-XII intact bilaterally, no sensory deficits noted and gait normal Sensorium / Orientation: awake, alert, oriented to person, oriented to place and oriented to time Motor Exam: strength 5/5 throughout and strength abnormal Psych mental status grossly normal Skin no rashes or lesions noted and no wounds MDM MDM MDM Narrative Medical decision making narrative: Patient presents with tachycardia and dyspnea. IV line established. EKG obtained initially showed what looked like a wide-complex tachycardia likely representing sinus with PACs and a right bundle branch block. CBC with differ ential obtained showed a white count of 8.2 with hemoglobin 16.9 and platelet counts of 277. Chemistries unremarkable. D-dimer was less than 0.27. Troponin normal at 9. Patient initially received Cardizem 20 mg IV bolus and this slowed him down into the 90s but started to creep back up. Blood pressure at times as well as 80 systolic. He is in no respiratory distress. Repeat EKG obtained now shows atrial fibrillation with a rate of 96 bpm with right bundle branch block and nonspecific ST changes. Will discuss case with hospitalist to evaluate patient for admission for diagnosis of A-fib RVR. Patient will require careful medical management. He had 3 prior cardiac ablations. Case discussed with hospitalist will evaluate patient for admission Lab Data Attestation: I reviewed the patient's lab results. Labs: Laboratory Results - last 24 hr 05/31/23 05/31/23 05/31/23 11:45 12:48 13:05 WBC 8.2 10.0 RBC 5.87 5.48 Hgb 16.9 H 15.6 Hct 52.8 48.4 MCV 89.9 88.3 MCH 28.8 28.5 MCHC 32.0 32.2 RDW Std Deviation 40.5 39.7 RDW Coeff of Venkatesh 12.2 12.2 Plt Count 277 242 MPV 10.3 10.0 Immature Gran % (Auto) 0.200 0.400 Neut % (Auto) 65.4 71.5 H Lymph % (Auto) 25.2 18.5 L [place] % (Auto) 6.3 7.3 Eos % (Auto) 1.8 1.4 Baso % (Auto) 1.1 H 0.9 Absolute Neuts (auto) 5.4 7.2 Absolute Lymphs (auto) 2.06 1.86 Nucleated RBC % 0 0 D-Dimer Quant (PE/DVT) < 0.27 L Sodium 142 141 Potassium 4.2 3.9 Chloride 113 H 113 H Carbon Dioxide 24.0 23.0 Anion Gap 5 5 BUN 18 20 H Creatinine 1.46 H 1.35 H Est GFR (MDRD) Af Amer 61 66 Est GFR (MDRD) Non-Af 50 L 55 L BUN/Creatinine Ratio 12.3 14.8 Glucose 169 H 146 H Calcium 9.1 9.0 Troponin I High Sens 9 8 Radiography Diagnostic Testing: Clinical Impression(s) from Imaging Studies Chest X-Ray 05/31/23 13:04 IMPRESSION: Hyperinflation. Stable increased markings at the right lung base suggestive of scarring. Electronically Signed: Rigoberto Palma MD at 13:17 EST , 1 view chest x-ray obtained interpreted by myself as hyperinflation otherwise no findings of infiltrate or pneumothorax or acute disease process. Radiology in agreement. EKG Initial EKG: Attestation: I personally reviewed and interpreted this EKG as follows: Comments: Sinus tachycardia with PACs and a right bundle branch block. After treatment with Cardizem repeat EKG obtained showed atrial fibrillation with rate of 86 bpm with right bundle branch block. Discharge Plan Triage Chief Complaint: Shortness of Breath ED Provider: Lalo Gonzalez Dx/Rx/DC Orders Clinical Impression: Acute hypotension, History of lymphoma, Atrial fibrillation with RVR Prescriptions: No Action rivaroxaban [Xarelto] 20 MG tablet 20 mg PO QHS Patient Comments: Blood thinner multivitamin [Multiple Vitamins] 1 EACH tablet 1 ea PO DAILY atorvastatin 20 MG tablet 20 mg PO QHS metformin 1,000 MG tablet 500 mg PO BIDCM finasteride 5 MG tablet 5 mg PO QHS duloxetine 30 MG capsule,delayed release(DR/EC) 30 mg PO DAILY metoprolol succinate 25 MG tablet 100 mg PO BID amiodarone 200 MG tablet 200 mg PO DAILY lisinopril 40 MG tablet 40 mg PO DAILY colchicine 0.6 MG capsule 0.6 mg PO DAILY Primary Care Provider: Franki Peng Referrals: Franki Peng MD [Primary Care Provider] - Disposition Disposition: Acute Care Hospital [facility]
[2023-05-31] MEDS: 0.9% Normal Saline (1000mL) 1,000 ML 150 ML IV ×2 (12:53→18:16)
[2023-05-31] MEDS: dilTIAZem 25 MG/5 ML Vial 20 MG IV BOLUS (12:53)
[2023-05-31] MEDS: 0.9% Normal Saline (500mL Bag) 500 ML 1000 ML IV (12:53)
--- NOTE | 2023-05-31 13:04 | RAD_ITS ---
STUDY: X-RAY CHEST REASON FOR EXAM: Male, 72 years old. Dyspnea. Tachycardia. TECHNIQUE: Single AP portable view of the chest. COMPARISON: Comparison is made with prior study September 27, 2019. FINDINGS: EKG electrodes are seen. Hyperinflation. Stable mild increased markings at the right lung base suggestive of scarring. There is no demonstrated pleural abnormality. Normal size heart. Normal mediastinum and sakina. Normal visualized pulmonary arteries. Normal visualized aortic arch and descending thoracic aorta. Normal visualized thoracic spine. Normal visualized ribs, clavicles, and shoulders. There is no demonstrated abnormality of the visualized soft tissue structures of the upper abdomen. RAD/Chest 1 View (Portable) IMPRESSION: Hyperinflation. Stable increased markings at the right lung base suggestive of scarring. Electronically Signed: Rigoberto Palma MD at 13:17 EST ,
[2023-05-31 13:06] LABS: D-Dimer Quantitative (DVT/PE) < 0.27 FEU/ug/m (0.27-0.49)
[2023-05-31 13:14] LABS: Absolute Lymphocyte Count 1.86 X10^3/uL (0.83-4.51); Absolute Neutrophil Count 7.2 X10^3/uL (2.0-7.7); Basophil# 0.09 X10^3/uL; Basophil% 0.9 % (0-1); Eosinophil# 0.14 X10^3/uL; Eosinophils% 1.4 % (0-5); Hematocrit 48.4 % (40-54); Hemoglobin 15.6 g/dL (13.0-16.5); Lymphocyte # 1.86 X10^3/ul (0.83-4.51); Lymphocyte % 18.5 % (19-41); Mean Corp Hgb Conc 32.2 g/dL (32-36); Mean Corpuscular Hgb 28.5 pg (27.0-32.0); Mean Corpuscular Volume 88.3 fL (80-94); Monocyte# 0.73 X10^3/uL; Monocyte% 7.3 % (0-10); NRBC Flagged by Analyzer 0 % (0-5); Neutrophil # 7.18 X10^3/uL (2.7-7.7); Neutrophil % 71.5 % (47-70); Platelet Count 242 K/mm3 (150-450); RBC Distribution Width CV 12.2 % (11.6-14.6); RBC Distribution Width SD 39.7 fl (35.1-43.9); Red Blood Count 5.48 M/mm3 (4.6-6.2)
[2023-05-31 13:17] LABS: Anion Gap 5 (5-15); BUN 20 mg/dL (7-18); BUN/Creat Ratio 14.8 RATIO (10-20); Chloride 113 mmol/L (98-107); Creatinine, Serum 1.35 mg/dL (0.70-1.30); EST Glomerular Filtration Rate 55 mL/min (>60); Est Glom Filt Rate - Afr Amer 66 mL/min (>60); Glucose 146 mg/dL (74-106); Potassium 3.9 mmol/L (3.5-5.1); Sodium Level 141 mmol/L (136-145); Troponin-I HS 8 pg/mL (3.0-78.0)
--- NOTE | 2023-05-31 14:47 | NURSING ---
PCU [facility] AFIB RVR, HYPOTENSION, GENERALIZED WEAKNESS
--- NOTE | 2023-05-31 15:24 | HP.PCM.HOS_ITS ---
HPI - General General Date of Admission: 05/31/23 Date of Service: 05/31/23 Chief Complaint: SOB and fast heart rate HPI Narrative MALLIKA GARCIA, is a 72y/o M with history of A-fib status post 3 ablations and BPH who presented to [facility] 05/31/2023 due to fast heart rate and shortness of breath. He has had 3 ablations for A-fib and is usually in sinus rhythm but was recently transition from amio to metoprolol and then last night noticed he was more fatigued and short of breath and had a fast heart rate, he took extra metoprolol at home this a.m. but then blood pressure dropped to 80 systolic prompting him to come to the ED, in ED he was found to have elevated rate but was difficult to tell if it was flutter with variable block or what the underlying rhythm was and he was given Cardizem which did reveal A-fib and improved heart rate but then pressures dropped. Given difficulty with rate control and blood pressure hospitalist contacted for admission. Patient seen at bedside, he endorses that he actually has been off amiodarone for several years with transition to metoprolol then but did not have problems into the past 3 days when he has been having off-and-on fluttering sensation and shortness of breath, it had gone away but then happened again yesterday with the feeling like he has a hard time getting a deep breath and an odd sensation in his chest as well as racing heart. Denies any swelling in extremities, no nausea or vomiting or swelling, no fevers or cough. No other acute complaints. [facility] Medical History (Updated 05/31/23 @ 15:[address] Loren Wyatt MD) Diabetes mellitus, type 2 Home Medications rivaroxaban 20 mg tablet (Xarelto) 20 mg PO DAILY BLOOD THINNER 01/23/15 [History Last Taken 05/31/23] finasteride 5 mg tablet 5 mg PO DAILY PROSTATE 12/07/16 [History Last Taken 05/03 05/24] multivitamin (Multiple Vitamins tablet) 1 ea PO DAILY HEALTH MAINTENANCE 12/07/16 [History Last Taken 05/31/23] dapagliflozin propanediol 5 mg tablet (Farxiga) 5 mg PO DAILY BLOOD SUGARS 05/31/23 [History Last Taken 05/31/23] lisinopril 20 mg tablet 20 mg PO DAILY BLOOD PRESSURE 05/31/23 [History Last Taken 05/31/23] metoprolol tartrate 50 mg tablet 50 mg PO BID HEART 05/31/23 [History Last Taken 05/31/23] semaglutide 0.25 mg or 0.5 mg (2 mg/3 mL) subcutaneous pen injector (Ozempic) 0.25 mg subcut TU DIABETES 05/31/23 [History Last Taken 05/30/23] Allergy/AdvReac Type Severity Reaction Status Date / Time fentanyl Allergy PT UNSURE Verified 05/31/23 11:31 OF REACTION morphine Allergy HALLUCINATI Verified 05/31/23 11:31 ONS amoxicillin AdvReac Nausea/Vom/ Verified 05/31/23 11:31 Diarrhea Social History Smoking Status: Never smoker ROS ROS Narrative General: Denies fever/chills HENT: Denies headache, denies stuffy nose, denies sore throat EYES: Denies changes in vision Resp: Denies cough, feels he has a hard time getting a deep breath when he has palpitations Cardiac: Odd sensation in his chest when he has A-fib GI: Denies abdominal pain, denies changes in bowel, denies nausea/vomiting : Denies changes in urination Extremity: Denies swelling MSK: Denies weakness Neuro: Denies any numbness/tingling Heme: Denies any bleeding or bruising Skin: Denies rashes Psychiatric: No complaints voiced Vital Signs Vital Signs Vital Signs: 05/31/23 11:32 05/31/23 12:36 05/31/23 12:36 Temperature 97.1 F L Temperature Source Temporal Pulse Rate 114 H 117 H Respiratory Rate 18 22 H Respiratory Effort Respiratory Pattern Blood Pressure 88/55 L 93/71 Blood Pressure Mean 66 78 Pulse Ox 95 96 Oxygen Delivery Method Room Air Room Air Room Air 05/31/23 12:36 05/31/23 12:57 05/31/23 12:59 Temperature Temperature Source Pulse Rate Respiratory Rate Respiratory Effort Short of Breath Respiratory Pattern Normal Blood Pressure 100/77 Blood Pressure Mean 84 Pulse Ox 96 Oxygen Delivery Method Room Air Room Air 05/31/23 13:31 05/31/23 14:37 05/31/23 15:01 Temperature Temperature Source Pulse Rate 100 119 H 18 L Respiratory Rate 20 H Respiratory Effort Respiratory Pattern Blood Pressure 86/72 L 117/77 111/80 Blood Pressure Mean 76 90 90 Pulse Ox 97 91 117 Oxygen Delivery Method Room Air Room Air Physical Exam Narrative General: Alert, oriented, no apparent distress HEENT: Atraumatic, normocephalic Eyes: Anicteric, normal conjunctiva, extraocular movements grossly intact Neck: Supple Respiratory: Clear to auscultation bilaterally, normal respiratory effort Cardiovascular: Mildly tachycardic and irregularly irregular GI: Soft, nontender, nondistended Extremities: No edema Musculoskeletal: Moving all extremities Neuro: No overt focal neurological deficits Skin: No rashes appreciated Psych: Cooperative Results Lab / Micro Data 05/31/23 13:05 05/31/23 12:48 Labs: Laboratory Results - last 24 hr 05/31/23 11:45: WBC 8.2, RBC 5.87, Hgb 16.9 H, Hct 52.8, MCV 89.9, MCH 28.8, MCHC 32.0, RDW Std Deviation 40.5, RDW Coeff of Venkatesh 12.2, Plt Count 277, MPV 10.3, Immature Gran % (Auto) 0.200, Neut % (Auto) 65.4, Lymph % (Auto) 25.2, Branch % (Auto) 6.3, Eos % (Auto) 1.8, Baso % (Auto) 1.1 H, Absolute Neuts (auto) 5.4, Absolute Lymphs (auto) 2.06, Nucleated RBC % 0, Sodium 142, Potassium 4.2, Chloride 113 H, Carbon Dioxide 24.0, Anion Gap 5, BUN 18, Creatinine 1.46 H, Est GFR (MDRD) Af Amer 61, Est GFR (MDRD) Non-Af 50 L, BUN/Creatinine Ratio 12.3, Glucose 169 H, Calcium 9.1, Troponin I High Sens 9 05/31/23 12:48: D-Dimer Quant (PE/DVT) < 0.27 L, Sodium 141, Potassium 3.9, Chloride 113 H, Carbon Dioxide 23.0, Anion Gap 5, BUN 20 H, Creatinine 1.35 H, Est GFR (MDRD) Af Amer 66, Est GFR (MDRD) Non-Af 55 L, BUN/Creatinine Ratio 14.8, Glucose 146 H, Calcium 9.0, Troponin I High Sens 8 05/31/23 13:05: WBC 10.0, RBC 5.48, Hgb 15.6, Hct 48.4, MCV 88.3, MCH 28.5, MCHC 32.2, RDW Std Deviation 39.7, RDW Coeff of Venkatesh 12.2, Plt Count 242, MPV 10.0, Immature Gran % (Auto) 0.400, Neut % (Auto) 71.5 H, Lymph % (Auto) 18.5 L, Branch % (Auto) 7.3, Eos % (Auto) 1.4, Baso % (Auto) 0.9, Absolute Neuts (auto) 7.2, Absolute Lymphs (auto) 1.86, Nucleated RBC % 0 Micro: Microbiology 05/31/23 12:47 Mucosa - Nose SARS-CoV-2, Influenza & RSV (PCR) - Final Imaging Radiology Impression Chest X-Ray 05/31/23 13:04 IMPRESSION: Hyperinflation. Stable increased markings at the right lung base suggestive of scarring. Electronically Signed: Rigoberto Palma MD at 13:17 EST , Assessment & Plan Assessment/Plan (1) Atrial fibrillation with RVR: (2) Acute hypotension: (3) Benign prostatic hypertrophy: QUALIFIERS: Lower urinary tract symptom presence: symptoms present (4) Diabetes mellitus, type 2: PLAN: Plan # A-fib with RVR -History of 3 ablations -Patient blood pressure sensitive to rate control with Cardizem and increased doses of beta-blockers -Patient's heart rate going back to RVR so we will start amnio bolus and drip, can likely be transition to p.o. amnio pending response and blood pressure -Continue home Xarelto -Will check TSH -Will check echocardiogram -Can consider cardiology consult if unable to control heart rate without making patient hypotensive even on Amio # Hypertension -Patient has been somewhat hypotensive intermittently when trying to rate control, hold lisinopril, on metoprolol #Type 2 diabetes mellitus -Glucose checks and sliding scale insulin -Hold home meds -Check A1c # Chronic BPH with obstruction -Continue finasteride #DVT ppx: Helen Wyatt MD Time spent in the patient's overall evaluation,decision-making process, review of diagnostic data, adjustment of management, discussion with other providers, nursing nursing and ancillary staff involved in patient's care documentation, 57 minutes Charges/Coding Visit Charges Inpatient E&M: 14758 Init Hosp L2
--- NOTE | 2023-05-31 17:27 | ECHOD_ITS ---
Reason For Study: ATRIAL FIBRILLATION/FLUTTER Procedure This was a 2D Doppler, Color Flow transthoracic echocardiogram. Exam performed portable in patient room. Left Ventricle Normal LV size. The estimated ejection fraction is 40 %. Unable to assess diastolic dysfunction due to arrhythmia. There are regional wall motion abnormalities as specified. Posterior-Basal: Akinetic. Mid-Posterior: Hypokinetic. Lateral-Basal: Hypokinetic. Mid-Lateral : Hypokinetic. Infero-Basal: Hypokinetic. Mid-Inferior: Hypokinetic. The rest of the wall segments are normal. Right Ventricle Severely dilated right ventricle. Moderate global right ventricular systolic dysfunction. Atria Normal left atrium. The right atrium is moderately enlarged. Mitral Valve Mild mitral annular calcification. Mild-Moderate (1-2+) mitral valve insufficiency. Tricuspid Valve Normal tricuspid valve. Mild (1+) tricuspid valve insufficiency. Right ventricular systolic pressure estimated to be 56 mmHg. Moderate pulmonary hypertension. Aortic Valve Trisinus/trileaflet aortic valve. Mild focal aortic valve calcification. Aortic sclerosis, no stenosis. Pulmonic Valve Normal pulmonic valve. Trivial pulmonic valve insufficiency. Great Vessels Normal aortic root. Pericardium/Pleural No pericardial effusion. MMode/2D Measurements & Calculations LVIDd: 5.9 cm IVSd: 0.92 cm Ao root diam: 3.4 cm LVIDs: 4.9 cm LVPWd: 1.0 cm RVDd: 4.3 cm FS: 16.3 % LAV(MOD-bp): 36.5 ml LVAd ap4: 24.0 cm2 LVAd ap2: 26.8 cm2 LAV(MOD-bp) Indexed: 15.0 ml/m2 LVLd ap4: 7.0 cm LVLd ap2: 7.8 cm LAV(MOD-sp2): 30.8 ml EDV(MOD-sp4): 68.9 ml EDV(MOD-sp2): 78.5 ml LAV(MOD-sp4): 39.5 ml EDV(sp4-el): 70.5 ml EDV(sp2-el): 78.3 ml LVAs ap4: 17.4 cm2 LVAs ap2: 20.2 cm2 LVLs ap4: 6.5 cm LVLs ap2: 7.0 cm ESV(MOD-sp4): 40.9 ml ESV(MOD-sp2): 48.0 ml ESV(sp4-el): 39.6 ml ESV(sp2-el): 49.3 ml EF(MOD-sp4): 40.7 % EF(MOD-sp2): 38.8 % EF(sp4-el): 43.9 % SV(MOD-sp4): 28.1 ml SV(MOD-sp2): 30.5 ml SV(sp4-el): 31.0 ml LA dimension(2D): 3.4 cm LA A4 area: 14.8 cm2 RA A4 area: 21.6 cm2 TAPSE: 1.9 cm Doppler Measurements & Calculations MV E max river: 96.3 cm/sec Lat Peak E' River: 5.7 cm/sec Med Peak E' River: 7.3 cm/sec E/E' lat: 16.8 E/E' med: 13.1 Ao V2 max: 93.5 cm/sec LV V1 max: 66.5 cm/sec PA V2 max: 60.5 cm/sec Ao max P.5 mmHg LV V1 max P.8 mmHg PA V2 mean: 44.8 cm/sec Ao V2 mean: 61.2 cm/sec LV V1 mean P.1 mmHg Ao mean P.8 mmHg LV V1 mean: 50.5 cm/sec Ao V2 VTI: 21.9 cm LV V1 VTI: 13.7 cm AV (velocity ratio): 0.62 TR max river: 363.0 cm/sec TR max P.7 mmHg ECHO/Echo Complete Interpretation Summary The estimated ejection fraction is 40 %. There are regional wall motion abnormalities as specified. Severely dilated right ventricle. Moderate global right ventricular systolic dysfunction. The right atrium is moderately enlarged. Mild mitral annular calcification. Mild-Moderate (1-2+) mitral valve insufficiency. Moderate pulmonary hypertension. Ordering Physician: Loren Wyatt Referring Physician: Moises Peng Performed By: Lin Macdonald, LORE, RVT
[2023-05-31 17:57] LABS: Bedside Glucose 108 mg/dL (74-106)
[2023-05-31] MEDS: Amiodarone 360 MG in Dextrose 5% Viaflo Bag 192.8 ML 33.2999999999999972 MG CONT INF (18:12)
[2023-05-31] MEDS: Metoprolol Tartrate 50 MG Tablet PO (19:30)
[2023-05-31 20:33] LABS: Bedside Glucose 153 mg/dL (74-106)
[2023-06-01] VITALS (17 sets, daily range): BP systolic 105–140; BP diastolic 58–112; PULSE 68–80; RESP 10–25; TEMP 36.4–36.8; O2SAT 92–100; BMI 33.3
[2023-06-01] MEDS: Amiodarone 360 MG in Dextrose 5% Viaflo Bag 192.8 ML 16.6999999999999993 MG CONT INF
[2023-06-01] MEDS: 0.9% Normal Saline (1000mL) 1,000 ML 150 ML IV ×3 (06:13→12:21)
[2023-06-01 06:37] LABS: Bedside Glucose 116 mg/dL (74-106)
[2023-06-01 07:55] LABS: Absolute Lymphocyte Count 2.11 X10^3/uL (0.83-4.51); Absolute Neutrophil Count 4.8 X10^3/uL (2.0-7.7); Basophil# 0.08 X10^3/uL; Eosinophil# 0.21 X10^3/uL; Eosinophils% 2.7 % (0-5); Hematocrit 44.9 % (40-54); Hemoglobin 14.5 g/dL (13.0-16.5); Lymphocyte # 2.11 X10^3/ul (0.83-4.51); Lymphocyte % 26.9 % (19-41); Mean Corp Hgb Conc 32.3 g/dL (32-36); Mean Corpuscular Volume 89.8 fL (80-94); Mean Platelet Vol. 10.1 fl (6.2-12.0); Monocyte# 0.62 X10^3/uL; Monocyte% 7.9 % (0-10); NRBC Flagged by Analyzer 0 % (0-5); Neutrophil % 61.1 % (47-70); Platelet Count 202 K/mm3 (150-450); RBC Distribution Width CV 12.2 % (11.6-14.6); RBC Distribution Width SD 40.1 fl (35.1-43.9); White Blood Count 7.9 K/mm3 (4.4-11.0)
[2023-06-01 08:42] LABS: ALB/GLOB Ratio 1.1 RATIO (0.9-2.4); AST(SGOT) 16 U/L (15-37); Alanine Aminotransfer ALT/SGPT 25 U/L (16-61); Albumin, Serum 3.2 g/dL (3.2-5.0); Alkaline Phosphatase 70 U/L (45-117); Anion Gap 5 (5-15); BUN 17 mg/dL (7-18); Calcium,Total 8.5 mg/dL (8.5-10.1); Chloride 115 mmol/L (98-107); Cholesterol 149 mg/dL (200); Creatinine, Serum 1.13 mg/dL (0.70-1.30); EST Glomerular Filtration Rate 67 mL/min (>60); Est Glom Filt Rate - Afr Amer 81 mL/min (>60); Estimated Creatinine Clearance 78.14 ml/min; Glucose 122 mg/dL (74-106); High Density Lipoprotein 38 mg/dL; Potassium 4.4 mmol/L (3.5-5.1); Protein, Total 6.2 g/dL (6.4-8.2); Sodium Level 142 mmol/L (136-145); Thyroid Stim Hormone (TSH) 3.22 uIU/mL (0.358-3.74); Triglycerides 126 mg/dL; Very Low Density Lipoprotein 25 mg/dL (5-40)
[2023-06-01 08:54] LABS: Hemoglobin A1c 6.4 % (3.8-5.6)
[2023-06-01] MEDS: Metoprolol Tartrate 50 MG Tablet PO ×2 (09:16→10:22)
[2023-06-01] MEDS: Finasteride 5 MG Tablet PO (09:17)
--- NOTE | 2023-06-01 10:50 | CASEMGMT ---
RN CM Face to Face with patient for initial transition planning/care coordination assessment. RN CM introduced self and role at [facility]. Patient lying in bed, alert and oriented. Patient willing to participate in assessment and is able to answer all questions appropriately. Care providers, pharmacy, and demographics verified. Patient wishes to discharge home, denies need for home health at this time. Patient states he has no further needs or concerns at this time. CM to follow for discharge planning needs that may arise. PCP: [place] Specialists: Den clinical documentation spec [facility] Preferred Pharmacy: [facility] Insurance: Mamadou RAND Prescription Benefit: yes Living Will/HPOA: yes, daughter Anna Agrawal LNOK: daughter Living Arrangements: Patient lives alone in single story home with 2 steps to enter the home. Patient states he is independent at home. Transportation: self, neighbor DME/HHC: Patient denies DME in the home. Patient has had [facility] in the past. Patient has been to rehab in [place]. Disposition Plan: Patient to discharge home with family support and follow-up plans in place. Gale COTE, RN, CM
[2023-06-01 11:35] LABS: Bedside Glucose 110 mg/dL (74-106)
--- NOTE | 2023-06-01 14:12 | DCINST_ITS ---
Discharge Instructions Diet Discharge Diet: 1800 Calorie Control Diet Activity Discharge Activity: Return to Normal Activity Weight Bearing Status: Full weight bearing Follow Up Care Test Results: Test results from this visit will be discussed in further detail at your follow- up appointment, if applicable. Discharge Plan Admission Admit Date/Time: 05/31/23 15:24 Primary Reason for Your Visit: atrial fib Attending Provider: Tra Herman Primary Care Provider: Franki Peng Consulting Providers: Loren Wyatt Instructions Additional Instructions / Restrictions: Increase your metoprolol to 100 mg (2 tablets 50 mg each) twice a day Increase your lisinopril to one half 20 mg pill daily See Dr. Grace (EP physician) at the main [place] at [facility] for follow-up, Dr. Crenshaw's office is supposed to arrange an appointment for you to follow-up with Dr. Grace, follow-up with Dr. Crenshaw at your regular appointment time (or within 1 month) Discharge Orders/Prescriptions Prescriptions: New metoprolol tartrate 100 mg Tablet 100 mg PO BID Qty: 60 0RF duloxetine [Cymbalta] 30 mg capsule,delayed release(DR/EC) 30 mg PO UD Qty: 60 1RF Rx Instructions: 1/day x 1 week, then 2 daily thereafter Continued Xarelto 20 MG tablet 20 mg PO DAILY multivitamin [Multiple Vitamins] 1 EACH tablet 1 ea PO DAILY finasteride 5 MG tablet 5 mg PO DAILY Ozempic 0.25 mg or 0.5 mg (2 mg/3 mL) pen injector 0.25 mg SUBCUT TU dapagliflozin propanediol [Farxiga] 5 mg tablet 5 mg PO DAILY Changed lisinopril 20 mg tablet 10 mg PO DAILY Qty: 1 0RF Discontinued metoprolol tartrate 50 mg tablet 50 mg PO BID Referrals / Follow Up: Franki Peng MD [Primary Care Provider] - Within 1 Month Mary Jane Crenshaw MD [Non-Staff] - Within 1 Month Disposition Disposition (needs filled in before D/C Order can be placed): Home, Self Care
--- NOTE | 2023-06-01 14:34 | DS.PCM_ITS ---
Providers Date of Admission: 05/31/23 Date of Discharge: 06/01/23 Primary Care Physician: Dr. Franki Peng MD Reason For Visit: AFIB RVR, HYPOTENSION, GENERALIZED WEAKNESS Diagnosis Discharge Diagnosis (1) Atrial fibrillation with RVR: Status: Acute Code(s): I48.91 - Unspecified atrial fibrillation (2) Acute hypotension: Status: Acute Code(s): I95.9 - Hypotension, unspecified (3) Benign prostatic hypertrophy: Status: Chronic Code(s): N40.0 - Benign prostatic hyperplasia without lower urinary tract symptoms Qualifiers: Lower urinary tract symptom presence: symptoms present (4) Diabetes mellitus, type 2: Status: Acute Code(s): E11.9 - Type 2 diabetes mellitus without complications Plan 1. Paroxysmal atrial fibs with RVR #2 type 2 diabetes #3 essential hypertension #4 chronic BPH #5 cardiomyopathy-type unclear #6 moderate pulmonary hypertension Medications at Discharge Home Medications rivaroxaban 20 mg tablet (Xarelto) 20 mg PO DAILY BLOOD THINNER 01/23/15 finasteride 5 mg tablet 5 mg PO DAILY PROSTATE 12/07/16 multivitamin (Multiple Vitamins tablet) 1 ea PO DAILY HEALTH MAINTENANCE 12/07/16 dapagliflozin propanediol 5 mg tablet (Farxiga) 5 mg PO DAILY BLOOD SUGARS 05/31/23 semaglutide 0.25 mg or 0.5 mg (2 mg/3 mL) subcutaneous pen injector (Ozempic) 0.25 mg subcut TU DIABETES 05/31/23 duloxetine 30 mg capsule,delayed release (Cymbalta) 30 mg PO UD #60 caps 0 06/01/23 lisinopril 20 mg tablet 10 mg (1/2 x 20 mg) PO DAILY BLOOD PRESSURE #1 TAB 06/01/23 metoprolol tartrate 100 mg tablet 100 mg PO BID #60 tabs 06/01/23 Hospital Course Operations None Procedures 2-D Echocardiogram Summary of Care Provided Minutes Spent on Discharge: 31 Hospital Course: This 72-year-old white male was seen in the emergency room at [facility] with complaints of shortness of breath and increased heart rate. Patient had a history of atrial fibs before and had undergone 3 ablations in the past, he has not followed up with his EP physician in several years. Patient takes Xarelto chronically. EKG obtained initially in the ER showed a wide- complex tachycardia with PACs and right bundle branch block. Chemistries were unremarkable, white blood cell count was normal and hemoglobin was slightly elevated at 16.9. Patient was given IV Cardizem and slowed the rate down but then the heart rate started to go back up, repeat EKG showed A-fib with RVR. Patient was admitted to PCU, rate limiting medications were adjusted, initially patient was placed on amiodarone but I stopped this medication-patient stated that in the past he had been taken off amiodarone because of concerns for side effects of this medication. I did talk with the patient's covering guidance services coordinator-Dr. Ricketts-he told me that the patient was supposed to follow-up with Dr. Grace who is an EP doctor at the [facility], his guidance services coordinator that he sees here [place] is Dr. Crenshaw. Patient's rate came under good control with increased dose of metoprolol. On 06/01/2023, patient was seen and examined: On examination he appeared in good health and spirits. Vital signs as documented. Skin warm and dry and without overt rashes. Neck without JVD, neck was supple, trachea midline, thyroid was normal. Lungs clear bilaterally, normal air movement was noted. Heart exam notable for irregular rhythm, normal sounds and absence of murmurs, rubs or gallops. Abdomen unremarkable and without evidence of organomegaly, masses, or abdominal aortic enlargement. Bowel sounds are present, abdomen is not distended. Extremities nonedematous, no cyanosis was noted, no clubbing was noted. Neuro: Cranial nerves II through XII are grossly intact, no focal motor deficits were noted, sensation to light touch and pinprick intact, motor exam 5/5 throughout. Psych: Patient is alert and oriented x3, he does not appear anxious or depressed, he does not appear agitated. Patient was discharged home in stable condition on 06/01/2023. Weight / BMI Weight Weight: 117.5 kg Body Mass Index (BMI) 33.3 ABG / Lab / Microbiology Data 06/01/23 07:25 06/01/23 07:25 Laboratory: Laboratory Results - last 24 hr 05/31/23 17:40: POC Glucose 108 H 05/31/23 20:05: POC Glucose 153 H 06/01/23 06:12: POC Glucose 116 H 06/01/23 07:25: WBC 7.9, RBC 5.00, Hgb 14.5, Hct 44.9, MCV 89.8, MCH 29.0, MCHC 32.3, RDW Std Deviation 40.1, RDW Coeff of Venkatesh 12.2, Plt Count 202, MPV 10.1, Immature Gran % (Auto) 0.400, Neut % (Auto) 61.1, Lymph % (Auto) 26.9, Callahan % (Auto) 7.9, Eos % (Auto) 2.7, Baso % (Auto) 1.0, Absolute Neuts (auto) 4.8, Absolute Lymphs (auto) 2.11, Nucleated RBC % 0, Sodium 142, Potassium 4.4, Ch loride 115 H, Carbon Dioxide 22.0, Anion Gap 5, BUN 17, Creatinine 1.13, Estim Creat Clear Calc 78.14, Est GFR (MDRD) Af Amer 81, Est GFR (MDRD) Non-Af 67, BUN/Creatinine Ratio 15.0, Glucose 122 H, Hemoglobin A1c 6.4 H, Calcium 8.5, Total Bilirubin 1.00, AST 16, ALT 25, Alkaline Phosphatase 70, Total Protein 6.2 L, Albumin 3.2, Globulin 3.0, Albumin/Globulin Ratio 1.1, Triglycerides 126, Cholesterol 149, LDL Cholesterol 86, VLDL Cholesterol 25, HDL Cholesterol 38 L, TSH 3.22 06/01/23 11:08: POC Glucose 110 H Microbiology: Microbiology 05/31/23 12:47 Mucosa - Nose SARS-CoV-2, Influenza & RSV (PCR) - Final D/C Instructions Discharge Diet: 1800 Calorie Control Diet Weight Bearing Status: Full weight bearing Meaningful Use Info Meaningful Use Diagnoses (Choose all that apply): None applicable Discharge Plan Admission Admit Date/Time: 05/31/23 15:24 Primary Reason for Your Visit: atrial fib Attending Provider: Tra Herman Primary Care Provider: Franki Peng Consulting Providers: Loren Wyatt Instructions Additional Instructions / Restrictions: Increase your metoprolol to 100 mg (2 tablets 50 mg each) twice a day Increase your lisinopril to one half 20 mg pill daily See Dr. Grace (EP physician) at the main [facility] at [facility] for follow-up, Dr. Crenshaw's office is supposed to arrange an appointment for you to follow-up with Dr. Grace, follow-up with Dr. Crenshaw at your regular appointment time (or within 1 month) Discharge Orders/Prescriptions Prescriptions: New metoprolol tartrate 100 mg Tablet 100 mg PO BID Qty: 60 0RF duloxetine [Cymbalta] 30 mg capsule,delayed release(DR/EC) 30 mg PO UD Qty: 60 1RF Rx Instructions: 1/day x 1 week, then 2 daily thereafter Continued Xarelto 20 MG tablet 20 mg PO DAILY multivitamin [Multiple Vitamins] 1 EACH tablet 1 ea PO DAILY finasteride 5 MG tablet 5 mg PO DAILY Ozempic 0.25 mg or 0.5 mg (2 mg/3 mL) pen injector 0.25 mg SUBCUT TU dapagliflozin propanediol [Farxiga] 5 mg tablet 5 mg PO DAILY Changed lisinopril 20 mg tablet 10 mg PO DAILY Qty: 1 0RF Discontinued metoprolol tartrate 50 mg tablet 50 mg PO BID Referrals / Follow Up: Franki Peng MD [Primary Care Provider] - Within 1 Month Mary Jane Crenshaw MD [Non-Staff] - Within 1 Month Disposition Disposition (needs filled in before D/C Order can be placed): Home, Self Care Charges/Coding Visit Charges Inpatient E&M: 20472 Disch Hosp >30min
--- NOTE | 2023-06-01 14:48 | CHAPLAIN ---
Type of Pastoral Visit _x__ Initial Visit ___ Follow-up Visit ___ On-call Visit ___ General Patient Visit ___ Spiritual Assessment ___ Family Conference ___ Bereavement ___ Rapid Response ___ Code Blue ___ Other (describe below) Pastoral Care Referral From _x__ Patient ___ Family ___ Nurse ___ Physician ___ Router Tender ___ Chimney Sweeper ___ Other (describe below) Sacrament/Intervention _x__ Active listening ___ Anointing ___ Episcopalian ___ Bereavement ___ Communion _x__ Katherine exploration ___ _x__ Life review _x__ Prayer ___ Reconciliation ___ Sacrament of Sick _x__ Supportive presence ___ Wedding ___ Other (describe below) Pastoral Comments patient states that he is doing better physically but immediately begins talking about his stressors, his family, and relationships in family; pt also relates his stress to the world situation and how bad it is getting; long time given to listen and give focus back to what is positive and how his katherine can help; pt welcomes a prayer and is tearful after prayer is given; offer of future support as needed
== END 2023-06-01 15:01 | disposition home or self-care (01) | DRG 309 ==
LOC: ED 14:25 → PCU 14:57
PROVIDERS: Admitting Provider Internal Medicine; Emergency Provider Emergency Medicine; PCP Family Medicine; Visit Provider Internal Medicine
DX: I48.0 Paroxysmal atrial fibrillation (principal); N13.8 Other obstructive and reflux uropathy; I27.20 Pulmonary hypertension, unspecified; I42.9 Cardiomyopathy, unspecified; I47.29 Other ventricular tachycardia; I95.9 Hypotension, unspecified; E11.9 Type 2 diabetes mellitus without complications; I10 Essential (primary) hypertension; I45.10 Unspecified right bundle-branch block; Z79.84 Long term (current) use of oral hypoglycemic drugs; Z79.01 Long term (current) use of anticoagulants; N40.1 Benign prostatic hyperplasia with lower urinary tract symptoms
CPT/HCPCS: 36415; 71045; 80048; 80053; 80061; 82962; 83036; 84443; 84484; 85025; 85379; 87631; 93005; 93306; 94760; 99284; J7030; Q9957; A4216